=== PATIENT | female | born 1960 | race Caucasian/White ===

== ENCOUNTER 2018-09-13 08:26 | Inpatient (IN) | payer OTHER ==
[~2018-09-13] VITALS: Ht 167.6 cm; Wt 87.5 kg
[2018-09-13] MEDS ORDERED: ONDANSETRON 2MG/ML, 2ML ONE (09:38)
[2018-09-13] MEDS ORDERED: MORPHINE SULFATE 4 MG/ML, 1ML ONE (09:39)
[2018-09-13 09:47] LABS: BASOPHILS # (AUTO) 0.02 x10^3/uL (0-0.1); BASOPHILS % (AUTO) 0 % (0-1); EOSINOPHILS # (AUTO) 0.06 x10^3/uL (0-0.4); EOSINOPHILS % (AUTO) 1 % (1-7); LYMPHOCYTES # (AUTO) 1.03 x10^3/uL (1-3.4); LYMPHOCYTES % (AUTO) 16 % (22-44); MD NO; MEAN CORPUSCULAR HEMOGLOBIN 31.1 pg (27.0-34.8); MEAN CORPUSCULAR HGB CONC 33.9 g/dL (32.4-35.8); MEAN CORPUSCULAR VOLUME 91.7 fL (80-100); MEAN PLATELET VOLUME 8.5 fL (7.4-10.4); MONOCYTES # (AUTO) 0.35 x10^3/uL (0.2-0.8); MONOCYTES % (AUTO) 6 % (2-9); NEUTROPHILS % (AUTO) 77 % (42-75); PLATELET COUNT 242 x10^3/uL (130-400); RED BLOOD COUNT 4.37 x10^6/uL (3.82-5.3); RED CELL DISTRIBUTION WIDTH 14.5 % (9.6-15.2)
[2018-09-13] MEDS: SODIUM CHLORIDE 0.9% 1,000 ML IV ONE ×2 (09:54→10:00)
[2018-09-13 09:58] LABS: ALBUMIN 3.4 g/dL (3.4-5.0); ANION GAP 6 mmol/L (5-15); CALCIUM 8.9 mg/dL (8.5-10.1); CHLORIDE 108 mmol/L (98-107)
[2018-09-13] MEDS ORDERED: ONDANSETRON 2MG/ML, 2ML IVPush ONE (10:00)
[2018-09-13 10:02] LABS: ALANINE AMINOTRANSFERASE 22 U/L (12-78); ALKALINE PHOSPHATASE 70 U/L (45-117); BILIRUBIN,TOTAL 0.5 mg/dL (0.2-1.0); CREATININE 0.67 mg/dL (0.55-1.02); TOTAL PROTEIN 7.3 g/dL (6.4-8.2)
[2018-09-13 10:06] LABS: MICROSCOPIC NOT IND
[2018-09-13 10:10] LABS: CULTURE INDICATED? NO
[2018-09-13] MEDS: MORPHINE SULFATE 4 MG/ML, 1ML IVPush PRN ×4 (10:12→19:16)
[2018-09-13] MEDS ORDERED: OMNIPAQUE 350 MG/ML, 100ML BOTTLE ONE (10:33)
[2018-09-13] MEDS ORDERED: CIPROFLOXACIN/PMX 400MG/200ML 200 ML ONE (10:55)
[2018-09-13] MEDS ORDERED: CIPROFLOXACIN/PMX 400MG/200ML 200 ML IVPB ONE (11:00)
[2018-09-13] MEDS ORDERED: SODIUM CHLORIDE 0.9% 1,000ML IVBOLUS ONE (11:00)
[2018-09-13] MEDS ORDERED: METRONIDAZOLE PMX 500MG/100ML 100 ML IVPB ONE (11:00)
[2018-09-13] MEDS ORDERED: SODIUM CHLORIDE 0.9% 1,000 ML IV ONE (11:01)
[2018-09-13] MEDS ORDERED: SODIUM CHLORIDE FLUSH 10ML SYR IVF PRN (11:30)
[2018-09-13] MEDS ORDERED: hydrALAzine 20 MG/ML, 1ML IVPush PRN (12:30)
[2018-09-13 12:49] VITALS: BP 121/79
[2018-09-13 13:28] LABS: CLOSTRIDIUM DIFFICILE ANTIGEN NEGATIVE; CLOSTRIDIUM DIFFICILE TOXIN NEGATIVE (Negative)
[2018-09-13] MEDS: CEFTRIAXONE PMX 2GM/50ML 50 ML IV SCH (13:48)
[2018-09-13] MEDS: SODIUM CHLORIDE 0.9% 1,000 ML IV SCH ×2 (13:48→21:07)
[2018-09-13] MEDS: METRONIDAZOLE PMX 500MG/100ML 100 ML IV SCH ×2 (14:24→23:29)
[2018-09-13 19:02] VITALS: BP 100/65
[2018-09-13] MEDS: PANTOPRAZOLE 40 MG IV IVPush SCH (21:07)
[2018-09-14 01:49] VITALS: BP 93/59
[2018-09-14] MEDS: SODIUM CHLORIDE 0.9% 1,000 ML IV SCH ×3 (03:59→20:33)
[2018-09-14] MEDS: MORPHINE SULFATE 4 MG/ML, 1ML IVPush PRN ×2 (04:00→17:30)
[2018-09-14 04:53] LABS: BASOPHILS # (AUTO) 0.02 x10^3/uL (0-0.1); BASOPHILS % (AUTO) 0 % (0-1); EOSINOPHILS # (AUTO) 0.12 x10^3/uL (0-0.4); EOSINOPHILS % (AUTO) 2 % (1-7); LYMPHOCYTES # (AUTO) 1.21 x10^3/uL (1-3.4); LYMPHOCYTES % (AUTO) 22 % (22-44); MD NO; MEAN CORPUSCULAR HEMOGLOBIN 31.9 pg (27.0-34.8); MEAN CORPUSCULAR HGB CONC 34.4 g/dL (32.4-35.8); MEAN CORPUSCULAR VOLUME 92.9 fL (80-100); MEAN PLATELET VOLUME 8.4 fL (7.4-10.4); MONOCYTES # (AUTO) 0.44 x10^3/uL (0.2-0.8); MONOCYTES % (AUTO) 8 % (2-9); NEUTROPHILS # (AUTO) 3.72 x10^3/uL (1.8-6.8); NEUTROPHILS % (AUTO) 68 % (42-75); PLATELET COUNT 209 x10^3/uL (130-400); RED BLOOD COUNT 3.51 x10^6/uL (3.82-5.3); RED CELL DISTRIBUTION WIDTH 14.3 % (9.6-15.2)
[2018-09-14 05:02] LABS: ALANINE AMINOTRANSFERASE 16 U/L (12-78); ALBUMIN 2.5 g/dL (3.4-5.0); ANION GAP 6 mmol/L (5-15); CALCIUM 7.7 mg/dL (8.5-10.1); CHLORIDE 112 mmol/L (98-107); CREATININE 0.75 mg/dL (0.55-1.02)
[2018-09-14 05:04] LABS: ALKALINE PHOSPHATASE 54 U/L (45-117); BILIRUBIN,TOTAL 0.5 mg/dL (0.2-1.0); TOTAL PROTEIN 5.8 g/dL (6.4-8.2)
[2018-09-14 07:39] VITALS: BP 93/60
[2018-09-14] MEDS ORDERED: ACETAMINOPHEN 325 MG TABLET ONE (08:21)
[2018-09-14] MEDS: ACETAMINOPHEN 325 MG TABLET PO PRN ×2 (08:25→17:38)
[2018-09-14] MEDS: METRONIDAZOLE PMX 500MG/100ML 100 ML IV SCH ×2 (08:25→17:30)
[2018-09-14] MEDS: PANTOPRAZOLE 40 MG IV IVPush SCH ×2 (08:25→20:32)
[2018-09-14 12:15] VITALS: BP 96/67
[2018-09-14] MEDS: CEFTRIAXONE PMX 2GM/50ML 50 ML IV SCH (13:41)
[2018-09-14] MEDS: ONDANSETRON 2MG/ML, 2ML IVPush PRN (17:30)
[2018-09-14 18:48] VITALS: BP 97/64
[2018-09-15] MEDS: METRONIDAZOLE PMX 500MG/100ML 100 ML IV SCH ×2 (01:22→09:53)
[2018-09-15] MEDS: ONDANSETRON 2MG/ML, 2ML IVPush PRN ×2 (01:27→09:54)
[2018-09-15 02:38] VITALS: BP 94/60
[2018-09-15] MEDS: SODIUM CHLORIDE 0.9% 1,000 ML IV SCH ×2 (03:57→09:20)
[2018-09-15 07:47] VITALS: BP 109/77
[2018-09-15] MEDS: PANTOPRAZOLE 40 MG IV IVPush SCH (09:52)
[2018-09-15] MEDS ORDERED: METR500T8 PO (11:19)
[2018-09-15] MEDS ORDERED: TRAM50TA2 PO (11:19)
[2018-09-15] MEDS ORDERED: CEFD300C37 PO (11:19)
[2018-09-15] MEDS ORDERED: OMEP-110 PO (11:19)
[2018-09-15] MEDS ORDERED: POLY17PO5 PO (11:19)
[2018-09-15 12:47] VITALS: BP 117/77
[2018-09-15] MEDS: CEFTRIAXONE PMX 2GM/50ML 50 ML IV SCH (14:00)
== END 2018-09-15 15:33 | disposition home or self-care (01) | DRG 392 ==
LOC: ED 11:00 → EDIP 11:01 → ED 11:04 → 3NE 12:12
PROVIDERS: ADMIT Internal Medicine; ATTEND Internal Medicine
DX: K57.20 Diverticulitis of large intestine with perforation and abscess without bleeding (principal); K59.00 Constipation, unspecified; Z90.49 Acquired absence of other specified parts of digestive tract; Z80.52 Family history of malignant neoplasm of bladder; Z80.3 Family history of malignant neoplasm of breast
CPT/HCPCS: 36415; 74177; 80053; 81003; 83605; 83690; 83735; 84100; 84145; 85025; 87040; 87324; 89055; 96365; 96375; 99285; G0378; J0696; J0744; J2405; Q9967; C9113; J7030